=== PATIENT | male | born 1985 | race Caucasian/White ===

== ENCOUNTER 2017-10-23 04:54 | Emergency (ER) | payer MEDICAID ==
[~2017-10-23] VITALS: Ht 188 cm; Wt 88.0 kg
[~2017-10-23 04:54] MED LIST: ACHD5005 PO; AMOX500C2 PO; ARPZ10T PO; CYCL10TA9 PO; DIVA-20 PO; HYDR1CAP2 PO; HYDR1TAB8 OP; IBP800T PO; NAPR-243 PO; SULF1TAB38 PO; [UNRECOGNIZED DRUG - OTHER]; [UNRECOGNIZED DRUG - OTHER]
--- OUTSIDE RECORDS SUMMARY | 2017-10-23 05:01 | XMS REPORT | Continuity of Care Document ---
Demographics Preferred Language Unknown Marital Status Unknown Alevism Affiliation Unknown Race Unknown Ethnic Group Unknown Author Author [facility] Address Unknown Phone Unavailable Allergies Active Description Code Type Severity Reaction Onset Reported/Identified Relationship to Patient Clinical Status Yes NO KNOWN DRUG ALLERGIES NO KNOWN DRUG ALLERG UNKNOWN Yes NO KNOWN DRUG ALLERGIES UNKNOWN NO KNOWN DRUG ALLERG Medications Medication Packaging Start Date Stop Date Route Dosage Sig LACTATED RINGERS 1000CC IV BAG INJ 0 ml 06/04/2016 06/05/2016 CONTINUOUSEVERY 0 Hour DIVALPROEX ER TAB 500 MG (DEPAKOTE ER) Dose(s ) 10/19/2016 10/25/2016 QHS&2100 LACTATED RINGERS 1000CC IV BAG INJ ml 10/20/2016 10/27/2016 CONTINUOUSEVERY 0 Hour NORMAL SALINE 1000CC IV BAG INJ 0.9 % (NS 1000CC IV BAG) ml 10/20/2016 11/04/2016 CONTINUOUSEVERY 0 Hour SIMVASTATIN TAB 40 MG (ZOCOR) Dose(s) 10/20/2016 10/26/2016 Daily&0900 ARIPIPRAZOLE TAB 15 MG (ABILIFY) Dose(s) 10/20/2016 10/26/2016 Daily&0900 CEFAZOLIN VIAL INJ 1 GM (ANCEF) GM 10/20/2016 10/20/2016 ONCE&0945 Problems Date Dx Coded Attending Type Code Diagnosis Diagnosed By 03/04/2009 786.50 CHEST PAIN 03/26/2011 461.9 SINUSITIS ACUTE 03/26/2011 466.0 BRONCHITIS, ACUTE 03/26/2011 V65.42 COUNSELING - SMOKING CESSATION 06/04/2016 Jocelyn Guzman V64.3 PROCEDURE NOT CARRIED OUT FOR OTHER REASONS 06/04/2016 Jocelyn Guzman Z53.9 PROCEDURE AND TREATMENT NOT CARRIED OUT, UNSPECIFIED REASON 10/20/2016 Jocelyn Guzman 706.2 SEBACEOUS CYST 10/20/2016 Jocelyn Guzman L72.0 EPIDERMAL CYST 10/19/2017 W 272.4 OTHER AND UNSPECIFIED HYPERLIPIDEMIA 10/19/2017 W 296.7 BIPOLAR I DISORDER, MOST RECENT EPISODE (OR CURRENT) UNSPECIFIED 10/19/2017 W E78.5 HYPERLIPIDEMIA , UNSPECIFIED 10/19/2017 W F31.9 BIPOLAR DISORDER, UNSPECIFIED 10/19/2017 W 272.4 OTHER AND UNSPECIFIED HYPERLIPIDEMIA 10/19/2017 W 296.7 BIPOLAR I DISORDER, MOST RECENT EPISODE (OR CURRENT) UNSPECIFIED 10/19/2017 W E78.5 HYPERLIPIDEMIA , UNSPECIFIED 10/19/2017 W F31.9 BIPOLAR DISORDER, UNSPECIFIED 10/19/2017 W V70.0 ROUTINE GENERAL MEDICAL EXAMINATION AT A HEALTH CARE FACILITY 10/19/2017 W Z00.00 ENCOUNTER FOR GENERAL ADULT MEDICAL EXAMINATION WITHOUT ABNORMAL FINDINGS 10/19/2017 W 272.4 OTHER AND UNSPECIFIED HYPERLIPIDEMIA 10/19/2017 W 296.7 BIPOLAR I DISORDER, MOST RECENT EPISODE (OR CURRENT) UNSPECIFIED 10/19/2017 W E78.5 HYPERLIPIDEMIA , UNSPECIFIED 10/19/2017 W F31.9 BIPOLAR DISORDER, UNSPECIFIED 10/19/2017 W V70.0 ROUTINE GENERAL MEDICAL EXAMINATION AT A HEALTH CARE FACILITY 10/19/2017 W Z00.00 ENCOUNTER FOR GENERAL ADULT MEDICAL EXAMINATION WITHOUT ABNORMAL FINDINGS 10/20/2017 W 272.4 OTHER AND UNSPECIFIED HYPERLIPIDEMIA 10/20/2017 W 296.7 BIPOLAR I DISORDER, MOST RECENT EPISODE (OR CURRENT) UNSPECIFIED 10/20/2017 W E78.5 HYPERLIPIDEMIA , UNSPECIFIED 10/20/2017 W F31.9 BIPOLAR DISORDER, UNSPECIFIED 10/20/2017 W V70.0 ROUTINE GENERAL MEDICAL EXAMINATION AT A HEALTH CARE FACILITY 10/20/2017 W Z00.00 ENCOUNTER FOR GENERAL ADULT MEDICAL EXAMINATION WITHOUT ABNORMAL FINDINGS Procedures There is no data. Results Test Result Range [facility] - 05/28/16 13:29 Anion Gap 14 6-14 BUN 7 mg/dL 5-25 Calcium 9.6 mg/dL 8.3-10.4 Chloride 104 mmol/L 95-114 CO2 28 mEq/L 22-33 Creat 0.82 mg/dL 0.50-1.50 eGFR 109 mL/min/1.73m2 >59 Glucose 90 mg/dL 70-110 Osmo 289 280-295 Potassium 4.6 mmol/L 3.5-5.3 Sodium 141 mmol/L 134-148 MRSA Screen - 05/28/16 13:29 FINAL CULTURE RESULTS MRSA Negative Nasal Culture MEDIA PLATED Setup at 13:51 on 05/28/2016 Valproic Acid - 10/12/16 09:15 Valproic Acid 61.5 ug/mL 55.0-105.0 Protime - 10/20/16 08:15 INR 0.9 1.0-4.0 Protime 10.7 Sec 9.9-12.8 MRSA Screen - 10/20/16 08:30 FINAL CULTURE RESULTS MRSA Negative Nasal Culture MEDIA PLATED Setup at 12:53 on 10/20/2016 Surgical Pathology - 10/20/16 10:14 Surg Path Sent to [facility] Valproic Acid - 10/19/17 15:35 Valproic Acid <2.0 ug/mL 55.0-105.0 Encounters ACCT No. Visit Date/Time Discharge Status Pt. Type Provider Facility Loc./Unit Complaint [id number] 03/26/2011 16:10:00 03/26/2011 23:59:59 CLS Outpatient [id number] 10/20/2016 00:00:00 10/20/2016 11:45:00 DIS Outpatient Jocelyn Guzman [id number] 10/12/2016 10:33:00 10/12/2016 23:59:00 DIS Outpatient RADHA GLOVER [id number] 06/04/2016 00:00:00 06/04/2016 23:59:00 DIS Outpatient Jocelyn Guzman [id number] 05/28/2016 12:56:00 05/28/2016 23:59:00 DIS Outpatient Jocelyn Guzman [id number] 10/19/2017 15:34:54 Document Registration [id number] 06/03/2016 09:12:42 Document Registration [id number] 10/19/2017 15:34:00 Document Registration [id number] 12/12/2012 16:08:00 12/12/2012 17:25:00 DIS Emergency [id number] 09/25/2012 10:30:00 09/25/2012 11:03:00 DIS Emergency
--- OUTSIDE RECORDS SUMMARY | 2017-10-23 05:01 | XMS REPORT | Continuity of Care Document ---
Author Author [facility] Organization [facility] Address Unknown Phone Unavailable Care Team Providers Care Rough Rounder Machine Name Role Phone NO, LOCAL PHYSICIAN PP Unavailable Insurance Providers Payer Name Policy Number Subscriber Name Relationship [facility] [id number] Bret Pascal 01 Self / Same As Patient Advance Directives Directive Response Recorded Date Advance Directives N 12/12/12 4:21pm Problems No Known Problems or Medical conditions. Social History History Response Recorded Date/Time Alcohol Use Occasionally Uses 12/12/12 4: 21pm Recreational Drug Use N 12/12/12 4:21pm Recent Foreign Travel N 12/12/12 4:21pm Recent Infectious Disease Exposure N 01/14 4:21pm Hospitalization with Isolation Denies 01/14 4:21pm Allergies, Adverse Reactions, Alerts Allergen Type Severity Reaction Last Updated No Known Drug Allergies 09/02/09 Medications Medication Dose Units Route Sig Qty Days Ibuprofen (Motrin) 800 Mg PO Q8HR PRN 30 Cyclobenzaprine HCl (Cyclobenzaprine Hcl) 1 Each PO Q8HR PRN 10 Naproxen (Naprosyn) 1 Each PO BID PRN 30 Aripiprazole (Abilify 10 Mg) 1 Tab PO DAILY Divalproex Sodium (Depakote) 1 PO TID Hydrocodone Bit/Acetaminophen (Hydrocodon-Acetaminophen 5-325) 1 - 2 Each PO Q6H PRN 14 Amoxicillin 1 Each PO TID 10 Acetaminophen/Hydrocodone Bitart (Hydrocodone-Apap 5-500 Cap) 1 - 2 Each PO Q 4 - 6 HRS PRN 15 [Restpidol] [Tenox] Immunizations Name Given Type Tdap 12/12/12 A Response Recorded Date/Time Status not known Unknown Results No Known Relevant Diagnostic Tests, Laboratory Data and/or Discharge Summary. Encounters Encounter Location Date/Time Departed Emergency Room [facility] 01/14 4:08pm
--- OUTSIDE RECORDS SUMMARY | 2017-10-23 05:01 | XMS REPORT | Continuity of Care Document ---
Author Author [facility] Organization [facility] Address Unknown Phone Unavailable Care Team Providers Care Stem Assembler Name Role Phone NO, LOCAL PHYSICIAN PP Unavailable Insurance Providers Payer Name Policy Number Subscriber Name Relationship Medicaid [place] [id number] Bret Pascal 01 Self / Same As Patient Advance Directives Directive Response Recorded Date Advance Directives N 09/25/12 10:34am Problems No Known Problems or Medical conditions. Social History History Response Recorded Date/Time Alcohol Use Occasionally Uses 09/25/12 10 :34am Recreational Drug Use N 09/25/12 10:34am Recent Foreign Travel N 09/25/12 10:34am Recent Infectious Disease Exposure N 10:34am Hospitalization with Isolation Denies 10:34am Allergies, Adverse Reactions, Alerts Allergen Type Severity Reaction Last Updated No Known Drug Allergies 09/02/09 Medications Medication Dose Units Route Sig Qty Days Naproxen (Naprosyn) 1 Each PO BID PRN 30 Hydrocodone Bit/Acetaminophen (Hydrocodon-Acetaminophen 5-325) 1 - 2 Each PO Q6H PRN 14 Amoxicillin 1 Each PO TID 10 Aripiprazole (Abilify 10 Mg) 1 Tab PO DAILY Divalproex Sodium (Depakote) 1 PO TID Acetaminophen/Hydrocodone Bitart (Hydrocodone-Apap 5-500 Cap) 1 - 2 Each PO Q 4 - 6 HRS PRN 15 [Restpidol] [Tenox] Response Recorded Date/Time Status not known Unknown Results No Known Relevant Diagnostic Tests, Laboratory Data and/or Discharge Summary. Encounters Encounter Location Date/Time Departed Emergency [facility] 10:30am
[2017-10-23] MEDS ORDERED: RX-NAPROXEN (NAPROSYN) 250 MG TAB PPK#4 PO STA (05:27)
[2017-10-23] MEDS ORDERED: AMOX-358 PO (05:30)
[2017-10-23] MEDS ORDERED: AUGMENTIN 875 MG TAB (AMOXICILLIN/CLAVULANATE) PO SCH (05:30)
[2017-10-23] MEDS ORDERED: LIDOCAINE 2% VISCOUS 15 ML UDC PO ONE (05:30)
[2017-10-23] MEDS ORDERED: NAPR-915 PO (05:30)
[2017-10-23] MEDS ORDERED: LIDO15SO2 MM (05:30)
--- NOTE | 2017-10-23 05:30 | ED EENT ---
History of Present Illness General Chief Complaint: Dental Problems/Pain Stated Complaint: TOOTH PAIN Nursing Triage Note: Patient advises dental pain that began yesterday and became progressively worse tonight. Pain is located on the right side of his mouth. He advises no local dentist. Source: patient History of Present Illness Date Seen by Provider: Oct 23, 2017 Time Seen by Provider: 05:20 Initial Comments C/O DENTAL PAIN X 3 DAYS--2 TEETH THINKS HE HAS AN ABSCESS ON TOP TOOTH PAIN IS WORSE TONIGHT--NO RELIEF WITH IBUPROFEN X 1 AT MIDNIGHT AND 1 AT 0300 HAS HAD PRIOR PROBLEMS WITH TEETH, BUT DOES NOT HAVE A DENTIST NO FEVER NO DRAINAGE PCP: [facility]=JARRET ALSO SEES DR. GLOVER AT [facility] Allergies and Home Medications Allergies Coded Allergies: No Known Drug Allergies (Unverified , 09/02/09) Home Medications Amoxicillin/Potassium Clav 1 Each Tablet, 1 EACH PO BID Prescribed by: LORRAINE FRY on 10/23/17529 Aripiprazole 10 Mg Tab, 1 TAB PO DAILY, (Reported) DAILY Cyclobenzaprine Hcl 10 Mg Tablet, 1 EACH PO Q8HR PRN Prescribed by: SERENITY CORDOVA on 12/12/12 1720 Divalproex Sodium 500 Mg Tablet., 1 PO TID, (Reported) Ibuprofen 800 Mg Tab, 800 MG PO Q8HR PRN Prescribed by: SERENITY CORDOVA on 12/12/12 1720 Lidocaine HCl 15 Ml Solution, 15 ML MM Q 1-2 HOURS Prescribed by: LORRAINE FRY on 10/23/1730 Naproxen 500 Mg Tablet, 1 EACH PO BID PRN Prescribed by: SERENITY CORDOVA on 09/25/12 1059 Naproxen 500 Mg Tablet, 500 MG PO BID Prescribed by: LORRAINE FRY on 10/23/17 0530 Patient Home Medication List Home Medication List Reviewed: Yes Review of Systems Constitutional: no symptoms reported Ears: No Symptoms Reported Nose: no symptoms reported Mouth: see HPI, pain, swelling Throat: no symptoms reported Respiratory: no symptoms reported Cardiovascular: no symptoms reported Gastrointestinal: no symptoms reported Musculoskeletal: no symptoms reported Skin: no symptoms reported Neurological: No Symptoms Reported Hematologic/Lymphatic: No Symptoms Reported Immunological/Allergic: no symptoms reported Past Dvnfshn-Mpksyo-Qtoopm Hx Patient Social History Alcohol Use: Denies Use Recreational Drug Use: No Smoking Status: Current Everyday Smoker Type Used: Cigarettes Recent Foreign Travel: No Contact w/Someone Who Travel: No Recent Infectious Disease Expo: No Physical Abuse: No Sexual Abuse: No Immunizations Up To Date Tetanus Booster (TDap): More than 5yrs Past Medical History Surgeries: Yes (NOSE AND RIGHT HAND REPAIR) Nose, Orthopedic Respiratory: No Cardiac: No Neurological: No Genitourinary: No Gastrointestinal: No Musculoskeletal: No Endocrine: No HEENT: Yes (POOR DENTITION) Cancer: No Psychosocial: Yes Sleep Difficulties, Bipolar Nursing Suicide Risk Score: 0 Integumentary: No Family Medical History No Pertinent Family Hx Physical Exam Vital Signs Vital Signs - First Documented 10/23/17 05:05 Temp 98.8 Pulse 78 Resp 14 B/P (MAP) 125/90 (102) Pulse Ox 95 O2 Delivery Room Air Height, Weight, BMI Height: 6'2.00" Weight: 194lbs. oz. 87.329935ck; BMI Method:Stated General Appearance: WD/WN, no apparent distress, other (REEKS OF CIGARETTES) Eyes: bilateral eye normal inspection, bilateral eye PERRL, bilateral eye EOMI Mouth/Throat: other (EXTENSIVE DENTAL DECAY. RIGHT LOWER LATERAL INCISOR WITH SEVERE TENDERNESS, DENTAL DECAY. NO SIGNIFICANT ADJACENT GUM SWELLING. RIGHT UPPER CANINE WITH SEVERE TENDERNESS AND MILD SURROUNDING GUM SWELLING AND ERYTHEMA. NO DRAINAGE OR POINTING ABSCESS. TOOTH WITH SOME DECAY. ) Neck: normal inspection Cardiovascular: regular rate, rhythm, no murmur Respiratory: normal breath sounds Neurologic/Psychiatric: transitional living specialist II-XII nml as tested, no motor/sensory deficits, alert, normal mood/affect, oriented x 3 Skin: normal color, warm/dry Progress/Results/Core Measures Results/Orders My Orders Orders - LORRAINE FRY DO Rx-Naproxen (Rx-Naprosyn) (10/23/17 05:27) Amoxicillin/Clavulanate Tablet (Augmenti (10/23/17 05:30) Lidocaine 2% Viscous 15 Ml (Xylocaine Vi (10/23/17 05:30) Medications Given in ED Current Medications Medications Dose Ordered Sig/Priscilla Route Start Time Stop Time Status Last Admin Dose Admin Lidocaine HCl 5 ml ONCE ONCE PO 10/23/17 05:30 10/23/17 05:31 DC 10/23/17 05:41 5 ML Vital Signs/I&O 10/23/17 10/23/17 05:05 05:42 Temp 98.8 Pulse 78 87 Resp 14 14 B/P (MAP) 125/90 (102) 125/90 Pulse Ox 95 98 O2 Delivery Room Air Room Air Blood Pressure Mean: 102 Departure Impression Primary Impression: Dental caries Additional Impression: Dental abscess Disposition: 01 HOME, SELF-CARE Condition: Stable Departure-Patient Inst. Referrals: [facility] (PCP) Primary Care Physician NO,LOCAL PHYSICIAN (Family) Primary Care Physician Patient Instructions: Tooth Abscess (DC), Tooth Decay, Adult (DC) Add. Discharge Instructions: SOFT FOODS FREQUENT SALT WATER SWISHES TYLENOL 1 GRAM 4 TIMES A DAY FOR PAIN FOLLOW UP WITH DENTIST SOON POSSIBLE --CALL IN AM TO SCHEDULE APPOINTMENT All discharge instructions reviewed with patient and/or family. Voiced understanding. Scripts Naproxen (Naproxen) 500 Mg Tablet 500 MG PO BID, #20 TAB Prov: LORRAINE FRY DO 10/23/17 Lidocaine HCl (Lidocaine HCl Viscous) 15 Ml Solution 15 ML MM Q 1-2 HOURS for Pain, #100 ML Prov: LORRAINE FRY DO 10/23/17 Amoxicillin/Potassium Clav (Augmentin 875-125 Tablet) 1 Each Tablet 1 EACH PO BID for INFECTION, #20 TAB Prov: LORRAINE FRY DO 10/23/17 LORRAINE FRY DO Oct 23, 2017 05:30
[2017-10-23 05:42] VITALS: BP 125/90
== END 2017-10-23 05:43 | disposition home or self-care (01) ==
LOC: EDUNIT# 04:54 → ER 04:58
DX: K02.9 Dental caries, unspecified (principal); K04.7 Periapical abscess without sinus; F31.9 Bipolar disorder, unspecified; F17.210 Nicotine dependence, cigarettes, uncomplicated
CPT/HCPCS: 99283